=== PATIENT | male | born 1970 | race African-American/Black ===

== ENCOUNTER 2017-05-21 05:49 | Emergency (ER) | payer OTHER ==
[~2017-05-21] VITALS: Ht 188 cm; Wt 108.9 kg
--- NOTE | ~2017-05-21 | CR169 ---
[facility] A Service of [facility] & [facility] RADIOLOGY TEXT RESULTS PATIENT: BEN JAMES LOCATION: [facility] : [birth year] UNIT #: [id number] AGE: [address]: Cristina Orr MD SEX: M ORDER DR: [id number] [place], [place] [address] [id number] E MR#: [id number] Acc #: [id number] NAME: BEN JAMES : 1970 SEX: M STUDY DATE/TIME: 05/21/2017 7:28 UNIT: [facility] ROOM: STUDY DESCRIPTION: CR Knee 2 Views Lt Attending Physician: Cristina Orr M.D. Ordering Physician: Cristina Orr M.D. Primary Care Physician: Primary Care Physician No MEDICAL IMAGING REPORT This report is preliminary unless electronic signature is present EXAM Left knee 2 views INDICATION Left knee pain and swelling for 3 days. COMPARISON No comparisons FINDINGS Soft tissue swelling anterior to the patella. No fracture, dislocation or joint effusion. IMPRESSION Soft tissue swelling overlying the patella. Otherwise unremarkable. Dictated by... Ravinder Woo M.D. THIS IS AN ELECTRONICALLY VERIFIED REPORT Ravinder Woo M.D. at 05/22/2017 9:30 AM Nell TD: 05/21/2017 09:32 JOB #: [id number] MEDICAL IMAGING REPORT Page 1 of 1 COPY
[~2017-05-21 05:49] MED LIST: ANUSOL-HC CREAM30 G1 EXT; COLACE PO; COLACE50 MG PO; FLEXERIL10 M1 PO; HYDROCODON-ACE1 EAC7 PO; LORTAB 5/500 TA1 TA1 PO; MOTRIN100 MG PO; NO MEDICATIONS
[2017-05-21 07:01] LABS: BASOPHIL% 0.6 % (0-2.5); EOSINOPHIL# 0.3 X10e3 (0-0.7); EOSINOPHIL% 6.4 % (0.0-7.0); HEMOGLOBIN 12.8 gm/dL (13.0-16.0); LYMPHOCYTE# 1.7 X10e3 (1.0-3.5); LYMPHOCYTE% 36.3 % (17.0-45.0); MEAN CELL VOLUME 80.1 FL (83-96); MEAN CORPUSCULAR HEMOGLOBIN 25.7 PG (28-34); MEAN PLATELET VOLUME 8.4 FL (6.5-11.5); MONOCYTE# 0.4 X10e3 (0-1.0); MONOCYTE% 7.9 % (3.0-12.0); NEUTROPHIL# 2.3 X10e3 (1.5-7.1); NEUTROPHIL% 48.8 % (40-75); PLATELET COUNT 256 X10e3 (140-420); RED BLOOD COUNT 4.99 X10e (3.90-5.60); RED CELL DISTRIBUTION WIDTH 16.7 % (11.0-15.5); WHITE BLOOD COUNT 4.6 X10e3 (4.0-10.5)
[2017-05-21 07:02] LABS: DIFF IND NO
[2017-05-21 07:28] LABS: BUN/CREATININE RATIO 16.15; CALCIUM SERUM 8.7 mg/dL (8.4-10.2); CREATININE SERUM 1.3 mg/dL (0.6-1.4); GLOM FILT RATE Estimated 74.8 mL/min (>60); POTASSIUM 3.5 mmol/L (3.5-5.1)
== END 2017-05-21 09:00 | disposition home or self-care (01) ==
LOC: CED 05:49
PROVIDERS: Emergency Medicine
DX: S80.212A Abrasion, left knee, initial encounter (principal); L03.116 Cellulitis of left lower limb; F17.200 Nicotine dependence, unspecified, uncomplicated; V03.00XA Pedestrian on foot injured in collision with car, pick-up truck or van in nontraffic accident, initial encounter; Y92.410 Unspecified street and highway as the place of occurrence of the external cause
CPT/HCPCS: 36415; 73560; 80048; 85025; 87040; 87070; 87077; 87186; 87205; 99283

== ENCOUNTER 2017-05-29 14:40 | Emergency (ER) | payer OTHER ==
[~2017-05-29] VITALS: Ht 188 cm; Wt 106.6 kg
--- NOTE | ~2017-05-29 | CR206 ---
[facility] A Service of [facility] & [facility] RADIOLOGY TEXT RESULTS PATIENT: BEN JAMES LOCATION: [facility] : 68 UNIT #: [id number] AGE: [address]: Raymond Ya MD SEX: M ORDER DR: [id number] [facility]. [place], [place] [address] [id number] E MR#: [id number] Acc #: [id number] NAME: BEN JAMES : 1970 SEX: M STUDY DATE/TIME: 05/29/2017 15:48 UNIT: [facility] ROOM: STUDY DESCRIPTION: CR Pelvis 1 or 2 Views Attending Physician: Raymond Ya M.D. Ordering Physician: Raymond Ya M.D. Primary Care Physician: No Primary Care Physician MEDICAL IMAGING REPORT This report is preliminary unless electronic signature is present EXAM AP pelvis. INDICATIONS Right-sided pelvic pain beginning this morning. FINDINGS AP view of the pelvis was obtained. The bones are normal. There is no fracture identified. IMPRESSION Normal AP pelvis. Dictated by... Aleksandar Ag M.D. THIS IS AN ELECTRONICALLY VERIFIED REPORT Aleksandar Ag M.D. at 05/30/2017 1:58 PM ROBI/kiarra TD: 05/29/2017 22:59 JOB #: [id number] MEDICAL IMAGING REPORT Page 1 of 1 COPY
== END 2017-05-29 16:10 | disposition home or self-care (01) ==
LOC: CED 14:40
DX: M79.651 Pain in right thigh (principal); I10 Essential (primary) hypertension; E11.9 Type 2 diabetes mellitus without complications; K21.9 Gastro-esophageal reflux disease without esophagitis; J44.9 Chronic obstructive pulmonary disease, unspecified; F17.200 Nicotine dependence, unspecified, uncomplicated
CPT/HCPCS: 72170; 96372; 99283; J2270